=== PATIENT | male | born 1940 | race Caucasian/White ===

== ENCOUNTER → 2022-01-03 | Outpatient (CLI) | payer MEDICARE, OTHER ==
[~2022-01-03] MED LIST: ASPI325T8 PO; BACI3.5O4 OP; CARV6.2541 PO; CRESTOR20 MG PO; FERR325C PO; FURO20TA3 PO; HYDR-2155 PO; LATA2.5D3 OP; MULT-245 PO; NITR0.4T22 SL; POTA20TA4 PO; TAMS0.4C2 PO; TRAM50TA PO; [UNRECOGNIZED DRUG - CODE] MM
--- NOTE | 2022-01-03 09:32 | RAD ---
AP and Lateral Views of the Chest 01/03/2022 9:23 AM Indication: Adenocarcinoma, right lung Comparison: Chest radiograph September 25, 2011 Findings: There is a small right pleural effusion with underlying atelectasis. No pneumothorax is see n. There is a rounded nodule left midlung, the density of which favors a calcified granuloma. Recomme nd correlation with prior imaging given history of lung cancer. Postoperative changes following media n sternotomy noted. Heart size is normal. IMPRESSION: 1. Small right pleural effusion with underlying atelectasis 2. Rounded nodule in the left midlung, the density of which favors calcified granuloma. Recommend cor relation with prior CT imaging given provided history of lung cancer Electronically signed by: Monty Bryant MD (01/03/2022 9:30 AM) [id number]
== END ==
LOC: RAD 09:02
PROVIDERS: ATTEND Internal Medicine
DX: C34.91 Malignant neoplasm of unspecified part of right bronchus or lung (principal); R91.1 Solitary pulmonary nodule; J90 Pleural effusion, not elsewhere classified; J98.11 Atelectasis
CPT/HCPCS: 71046